=== PATIENT | female | born 2000 | race Caucasian/White ===

== ENCOUNTER → 2024-11-26 11:27 | Outpatient (BNVA) | payer OTHER, SELFPAY | PROVIDERS: Visit Provider Nurse Practitioner Women's Health | DX: R93.89 Abnormal findings on diagnostic imaging of other specified body structures (principal); N83.02 Follicular cyst of left ovary; N83.01 Follicular cyst of right ovary; N85.4 Malposition of uterus | CPT/HCPCS: 76830 ==

== ENCOUNTER → 2025-01-15 16:40 | Outpatient (BNVA) | payer OTHER, SELFPAY | PROVIDERS: Visit Provider Obstetrics & Gynecology | DX: Z12.4 Encounter for screening for malignant neoplasm of cervix (principal) | CPT/HCPCS: 88175 ==

== ENCOUNTER 2025-02-03 07:38 | Outpatient (CLI) | payer OTHER, SELFPAY ==
--- NOTE | 2025-02-03 08:00 | CT_ITS ---
WS: [id number] CT ABDOMEN AND PELVIS WITH CONTRAST HISTORY: recurrent inguinal hernia/ groin pain TECHNIQUE: Imaging performed of the abdomen and pelvis with IV contrast. Single phase imaging of the abdomen. Coronal and sagittal reformats are submitted. All CT scans at [facility] use at least one of these dose optimization techniques: automated exposure control; mA and/or kV adjustment per patient size (includes targeted exams where dose is matched to clinical indication); or iterative reconstruction. IV CONTRAST: Omnipaque 350; 100 mL IV. Oral contrast: Yes. DLP: 528.80 mGy.cm COMPARISON: Transvaginal pelvic ultrasound 11/26/2024 Lower thorax: Lung bases are clear. Heart is normal size. No hiatal hernia. Liver/biliary system: Normal size with no intrahepatic dilatation. Gallbladder: Normal. No gallstones or wall thickening. No pericholecystic fluid. Pancreas: Normal size pancreas and pancreatic duct. No adjacent inflammation. Spleen: Normal size spleen. No mass or infarct. Adrenal glands: Normal. Right kidney: Normal. Left kidney: Normal. Aorta: Normal. Lymphadenopathy: None. Free fluid: None. GI tract: Unremarkable. Abdominal wall: Unremarkable abdominal wall. No hernia. Pelvis: Small amount of fluid along the endometrial canal. There is mild thickening of the cervix. Recent transvaginal pelvic ultrasound from 11/26/2024. Normal. Small follicle LEFT ovary. No inguinal hernias. Bones: Unremarkable. CT/CT abdomen pelvis w con* [id number]: 1[address] Normal [address] abdomen and pelvis. 2. No umbilical or inguinal hernias identified. 3. No GI tract obstruction. No colitis.
[2025-02-03] MEDS: iohexol 350 mg/mL 500 mL Btl (per mL) IV (09:13)
[2025-02-03] MEDS: iohexol 350 mg/mL 500 mL Btl (per mL) PO (09:13)
== END 2025-02-03 07:39 | disposition home or self-care (01) ==
LOC: RAD 07:43
PROVIDERS: PCP Surgery Plastic and Reconstructive Surgery; Visit Provider Surgery
DX: N83.02 Follicular cyst of left ovary (principal); K40.91 Unilateral inguinal hernia, without obstruction or gangrene, recurrent; R93.89 Abnormal findings on diagnostic imaging of other specified body structures
CPT/HCPCS: 74177

== ENCOUNTER 2025-03-11 08:04 | Outpatient (RCR) | payer OTHER, SELFPAY | END 2025-04-02 23:59 | disposition home or self-care (01) | LOC: SPT 08:04 | PROVIDERS: Visit Provider Obstetrics & Gynecology | DX: R10.20 Pelvic and perineal pain unspecified side (principal) | CPT/HCPCS: 20560; 97110; 97161 ==